=== PATIENT | male | born 1995 | race Caucasian/White ===

== ENCOUNTER 2018-03-21 10:42 | Observation (INO) | payer OTHER ==
[2018-03-21] VITALS (8 sets, daily range): BP systolic 129–145; BP diastolic 69–88
--- NOTE | 2018-03-21 10:44 | ER Report ---
History and Physical Time Seen By MD: 10:44 HPI/JULIUS CHIEF COMPLAINT: Abdominal pain HISTORY OF PRESENT ILLNESS: Patient is a 22-year-old male with no contributory past medical history who presents to the emergency department in acute alcohol withdrawal. The patient normally lives in [place] but is here for the summer for employment. His last drink was approximately 36-40 hours ago. He does however state that he did drink half a beer earlier today to help combat his withdrawal symptoms. He's feeling quite tremulous, he is sweaty feeling very anxious. Planing of some epigastric abdominal discomfort. Patient states he normally drinks about a half liter to 1 L of vodka daily. States that over the past 3 weeks his alcohol consumption has increased. He does not have a physician in town. He does have his mother who is here with him locally. She denies feeling suicidal. He denies any homicidal ideation either. Patient does report having going through severe withdrawal symptoms with attempts at detoxing before. But states that at that time his alcohol consumption was not quite as severe. REVIEW OF SYSTEMS: Constitutional: No fever, no chills. Sweaty and tremulous Eyes: No discharge. ENT: No sore throat. Cardiovascular: Tachycardic no chest pain Respiratory: No cough, no shortness of breath. Gastrointestinal: No abdominal pain, no vomiting. Nausea Genitourinary: No hematuria. Musculoskeletal: No back pain. Skin: No rashes. Neurological: No headache. Psychiatric: No suicidal or homicidal ideation Allergies: Coded Allergies: No Known Drug Allergies (Unverified , 03/21/18) Home Meds No Active Prescriptions or Reported Meds Past Medical/Surgical History Noncontributory Constitutional Vital Sign - Last 24 Hours 03/21/18 03/21/18 03/21/18 03/21/18 10:42 10:49 10:51 10:57 Temp 98.6 Pulse ??? 88 91 Resp 20 B/P (MAP) 155/96 155/96 (115) Pulse Ox 91 95 O2 Delivery Room Air 03/21/18 03/21/18 03/21/18 03/21/18 11:00 11:12 11:27 11:30 Pulse 87 76 B/P (MAP) 144/105 (118) 131/80 (97) 135/86 (102) Pulse Ox 93 93 7/21/18 03/21/18 03/21/18 03/21/18 11:42 11:57 12:00 12:12 Pulse 84 85 92 Resp 10 13 17 B/P (MAP) 136/77 (96) Pulse Ox 94 93 93 Physical Exam General Appearance: The patient is alert, has no immediate need for airway protection and no signs of toxicity. She appears flushed and diaphoretic Eyes: Pupils equal and round no pallor or injection. ENT, Mouth: Mucous membranes are moist. Respiratory: There are no retractions, lungs are clear to auscultation. Cardiovascular: Regular rate and rhythm. Gastrointestinal: Abdomen is soft and non tender, no masses, bowel sounds normal. Neurological: Awake alert anxious; CIWA score-25 Skin: Given his flushed and diaphoretic Musculoskeletal: Neck is supple non tender. Extremities are nontender, nonswollen and have full range of motion. Medical Decision Making Data Points Result Diagram: 03/21/18 1050 03/21/18 1050 Laboratory Hematology Test 03/21/18 10:45 03/21/18 10:50 Urine Color Yellow Urine Clarity Slightly-cloudy Urine pH 7.0 pH (4.8-9.5) Urine Specific [place] 1.001 Urine Protein Negative mg/dL (NEGATIVE) Urine Glucose (UA) Negative mg/dL (NEGATIVE) Urine Ketones Negative mg/dL (NEGATIVE) Urine Blood Negative (NEGATIVE) Urine Nitrite Negative (NEGATIVE) Urine Bilirubin Negative (NEGATIVE) Urine Urobilinogen Negative mg/dL (0.2-1.9) Urine Leukocyte Esterase Negative (NEGATIVE) Urine RBC None /HPF (0-2/HPF) Urine WBC <1 /HPF (0-5/HPF) Urine Squamous Epithelial Cells None /LPF (</=FEW) Urine Bacteria Negative /HPF (NONE-FEW) Urine Mucus None /HPF (NONE-FEW) Urine Opiates Screen Negative Urine Barbiturates Screen Negative Ur Tricyclic Antidepressants Screen Negative Urine Phencyclidine Screen Negative Urine Amphetamines Screen Negative Urine Benzodiazepines Screen Negative Urine Cocaine Screen Negative Urine Cannabinoids Screen Negative Red Blood Count 5.51 M/uL (4.00-5.60) Mean Corpuscular Volume 90.5 fL (80.0-96.0) Mean Corpuscular Hemoglobin 31.6 pg (26.0-33.0) Mean Corpuscular Hemoglobin Concent 34.9 g/dL (32.0-36.0) Red Cell Distribution Width 13.7 % (11.5-14.5) Mean Platelet Volume 8.1 fL (7.2-11.1) Neutrophils (%) (Auto) 68.9 % (39.4-72.5) Lymphocytes (%) (Auto) 17.0 % (17.6-49.6) Monocytes (%) (Auto) 12.2 % (4.1-12.4) Eosinophils (%) (Auto) 0.9 % (0.4-6.7) Basophils (%) (Auto) 1.0 % (0.3-1.4) Nucleated RBC Relative Count (auto) 0.1 /100WBC Neutrophils # (Auto) 6.2 K/uL (2.0-7.4) Lymphocytes # (Auto) 1.5 K/uL (1.3-3.6) Monocytes # (Auto) 1.1 K/uL (0.3-1.0) Eosinophils # (Auto) 0.1 K/uL (0.0-0.5) Basophils # (Auto) 0.1 K/uL (0.0-0.1) Nucleated RBC Absolute Count (auto) 0.01 K/uL Sodium Level 139 mmol/L (137-145) Potassium Level 3.7 mmol/L (3.5-5.0) Chloride Level 98 mmol/L (98-107) Carbon Dioxide Level 22 mmol/L (22-30) Blood Urea Nitrogen 11 mg/dl (9-21) Creatinine 0.80 mg/dl (0.66-1.25) Glomerular Filtration Rate Calc > 60.0 Random Glucose 115 mg/dl (75-110) Calcium Level 10.8 mg/dl (8.4-10.2) Magnesium Level 1.9 mg/dl (1.7-2.2) Total Bilirubin 1.3 mg/dl (0.2-1.3) Aspartate Amino Transf (AST/SGOT) 132 U/L (0-35) Alanine Aminotransferase (ALT/SGPT) 164 U/L (0-56) Alkaline Phosphatase 63 U/L (0-126) Total Protein 9.1 g/dl (6.3-8.2) Albumin 5.4 g/dl (3.5-5.0) Lipase 170 U/L (23-300) Salicylates Level < 10 mg/L Salicylate Last Dose Date unk Acetaminophen Level < 10 ug/ml Serum Alcohol < 10 mg/dl Chemistry Test 03/21/18 10:45 03/21/18 10:50 Urine Color Yellow Urine Clarity Slightly-cloudy Urine pH 7.0 pH (4.8-9.5) Urine Specific [place] 1.001 Urine Protein Negative mg/dL (NEGATIVE) Urine Glucose (UA) Negative mg/dL (NEGATIVE) Urine Ketones Negative mg/dL (NEGATIVE) Urine Blood Negative (NEGATIVE) Urine Nitrite Negative (NEGATIVE) Urine Bilirubin Negative (NEGATIVE) Urine Urobilinogen Negative mg/dL (0.2-1.9) Urine Leukocyte Esterase Negative (NEGATIVE) Urine RBC None /HPF (0-2/HPF) Urine WBC <1 /HPF (0-5/HPF) Urine Squamous Epithelial Cells None /LPF (</=FEW) Urine Bacteria Negative /HPF (NONE-FEW) Urine Mucus None /HPF (NONE-FEW) Urine Opiates Screen Negative Urine Barbiturates Screen Negative Ur Tricyclic Antidepressants Screen Negative Urine Phencyclidine Screen Negative Urine Amphetamines Screen Negative Urine Benzodiazepines Screen Negative Urine Cocaine Screen Negative Urine Cannabinoids Screen Negative White Blood Count 9.0 k/uL (4.5-11.0) Red Blood Count 5.51 M/uL (4.00-5.60) Hemoglobin 17.4 g/dL (14.0-18.0) Hematocrit 49.9 % (42.0-52.0) Mean Corpuscular Volume 90.5 fL (80.0-96.0) Mean Corpuscular Hemoglobin 31.6 pg (26.0-33.0) Mean Corpuscular Hemoglobin Concent 34.9 g/dL (32.0-36.0) Red Cell Distribution Width 13.7 % (11.5-14.5) Platelet Count 304 K/uL (150-450) Mean Platelet Volume 8.1 fL (7.2-11.1) Neutrophils (%) (Auto) 68.9 % (39.4-72.5) Lymphocytes (%) (Auto) 17.0 % (17.6-49.6) Monocytes (%) (Auto) 12.2 % (4.1-12.4) Eosinophils (%) (Auto) 0.9 % (0.4-6.7) Basophils (%) (Auto) 1.0 % (0.3-1.4) Nucleated RBC Relative Count (auto) 0.1 /100WBC Neutrophils # (Auto) 6.2 K/uL (2.0-7.4) Lymphocytes # (Auto) 1.5 K/uL (1.3-3.6) Monocytes # (Auto) 1.1 K/uL (0.3-1.0) Eosinophils # (Auto) 0.1 K/uL (0.0-0.5) Basophils # (Auto) 0.1 K/uL (0.0-0.1) Nucleated RBC Absolute Count (auto) 0.01 K/uL Glomerular Filtration Rate Calc > 60.0 Calcium Level 10.8 mg/dl (8.4-10.2) Magnesium Level 1.9 mg/dl (1.7-2.2) Total Bilirubin 1.3 mg/dl (0.2-1.3) Aspartate Amino Transf (AST/SGOT) 132 U/L (0-35) Alanine Aminotransferase (ALT/SGPT) 164 U/L (0-56) Alkaline Phosphatase 63 U/L (0-126) Total Protein 9.1 g/dl (6.3-8.2) Albumin 5.4 g/dl (3.5-5.0) Lipase 170 U/L (23-300) Salicylates Level < 10 mg/L Salicylate Last Dose Date unk Acetaminophen Level < 10 ug/ml Serum Alcohol < 10 mg/dl Toxicology Test 03/21/18 10:45 03/21/18 10:50 Urine Opiates Screen Negative Urine Barbiturates Screen Negative Ur Tricyclic Antidepressants Screen Negative Urine Phencyclidine Screen Negative Urine Amphetamines Screen Negative Urine Benzodiazepines Screen Negative Urine Cocaine Screen Negative Urine Cannabinoids Screen Negative Salicylates Level < 10 mg/L Salicylate Last Dose Date unk Acetaminophen Level < 10 ug/ml Serum Alcohol < 10 mg/dl Urinalysis Test 03/21/18 10:45 Urine Color Yellow Urine Clarity Slightly-cloudy Urine pH 7.0 pH (4.8-9.5) Urine Specific [place] 1.001 Urine Protein Negative mg/dL (NEGATIVE) Urine Glucose (UA) Negative mg/dL (NEGATIVE) Urine Ketones Negative mg/dL (NEGATIVE) Urine Blood Negative (NEGATIVE) Urine Nitrite Negative (NEGATIVE) Urine Bilirubin Negative (NEGATIVE) Urine Urobilinogen Negative mg/dL (0.2-1.9) Urine Leukocyte Esterase Negative (NEGATIVE) Urine RBC None /HPF (0-2/HPF) Urine WBC <1 /HPF (0-5/HPF) Urine Squamous Epithelial Cells None /LPF (</=FEW) Urine Bacteria Negative /HPF (NONE-FEW) Urine Mucus None /HPF (NONE-FEW) EKG/Imaging EKG Interpretation EKG shows normal sinus rhythm with a ventricular rate of [address] segment or T-wave abnormalities Monitor Interpretation: Normal Sinus Rhythm ED Course/Re-evaluation Clinical Indication for ER IV: IV Access ED Course 03/21/2018 11:20:14 am patient in acute alcohol withdrawal with a CIWA score of 25. Patient is not suicidal or homicidal. We will perform medical evaluation I believe the patient should be admitted for alcohol detox. Patient seems open to this suggestion and is cooperative at this time. Re-evaluation 03/21/2018 12:32:51 pm patient feeling improved after 5 of IV Valium and 5 oral Valium; CIWA score is 17. Did discuss the case with who is x ray control equipment repairer for behavioral medicine. They are apparently having an issue with a combative patient on the floor. She requested that the patient be admitted to the hospital service. I spoke with Dr. Werner Santos who is accepted the patient for alcohol detox at this time. Decision to Disposition Date: Mar 21, 2018 Decision to Disposition Time: 12:33 Depart Departure Latest Vital Signs Vital Signs Date Time Temp Pulse Resp B/P (MAP) Pulse Ox O2 Delivery O2 Flow Rate FiO2 03/21/18 12:12 92 17 93 03/21/18 12:00 136/77 (96) 03/21/18 10:49 98.6 Room Air Impression: Primary Impression: Alcohol dependence Condition: Improved Disposition: Admitted from ER (to dr Santos) New Scripts No Active Prescriptions or Reported Meds Problem Qualifiers Primary Impression: Alcohol dependence Substance use status: in withdrawal Complication of substance-induced condition: uncomplicated Qualified Codes: F10.230 - Alcohol dependence with withdrawal, uncomplicated SOLEDAD KWAN MD Mar 21, 2018 10:44
[2018-03-21] MEDS ORDERED: THIAMINE HCL(*) 200 MG/2 ML IN 100 MG, FOLIC ACID(*) 50 MG/10 ML INJ 1 MG, MULTIVITAMIN... IV ONE ×2 (11:02→11:10)
[2018-03-21] MEDS ORDERED: DIAZEPAM 50 MG/10 ML MDV IVP ONE (11:05)
[2018-03-21 11:10] LABS: PLATELET COUNT, AUTOMATED 304 K/uL (150-450)
--- NOTE | 2018-03-21 11:14 | EKG ---
FACILITY: [facility] - [place] PATIENT NAME: RADHA PEREZ : [id number] MR: [id number] V: [id number] EXAM DATE: ORDERING PHYSICIAN: SOLEDAD KWAN TECHNOLOGIST: AYLEEN Test Reason : ETOH WITHDRAW Blood Pressure : / mmHG Vent. Rate : 087 BPM Atrial Rate : 087 BPM P-R Int : 132 ms QRS Dur : 098 ms QT Int : 362 ms P-R-T Axes : 061 075 050 degrees QTc Int : 435 ms Sinus rhythm Arifact in limb mleads - repeat if needed No previous ECGs available Confirmed by TONY CERVANTES ([id number]) on 03/21/2018 11:31:20 AM Referred By: ANIYA Confirmed By:TONY CERVANTES
[2018-03-21] MEDS ORDERED: ONDANSETRON 4 MG/2 ML VIAL IVP ONE (11:20)
[2018-03-21] MEDS ORDERED: DIAZEPAM 5 MG TAB PO ONE (11:40)
[2018-03-21] MEDS ORDERED: FLUO-201 PO (13:11)
--- NOTE | 2018-03-21 14:07 | History & Physical ---
History of Present Illness Chief Complaint "I want to quit" History of Present Illness 22yo male with PMHx significant for RADHA/depression. He reports starting to drink alcohol at age 19. He states he drank rather heavily shortly after that. He quit drinking approximately 8 months ago with moderate withdrawal symptoms ( no seizures). He was abstinent for only a short time and resumed drinking. He reports drinking heavily for the past month or so - up to one liter of vodka a day. He states he wanted to stop drinking and tried to do it on his own starting 2 days ago. He developed tremulousness, auditory/visual hallucinations , and abdominal pain. He tried drinking half of a beer to relieve his symptoms. He then decided to seek medical attention. His evaluation revealed transaminitis , but was otherwise unremarkable. He was recommended for admission. History Problems: (1) Alcohol dependence Status: Chronic (2) Generalized anxiety disorder Status: Chronic (3) Depression Status: Chronic Home Meds Reported Medications Fluoxetine Hcl (PROZAC) 10 Mg Capsule, 10 MG PO QDAY, CAPSULE 03/21/18 Allergies: Coded Allergies: No Known Drug Allergies (Unverified , 03/21/18) Patient History: Alcoholism in father FATHER Hx Smoking: No Hx Alcohol Use: Yes Hx Substance Use Disorder: Yes Social Drugs: Marijuana Review of Systems Constitutional: Other (termor) Neurological: Other (hallucinations) Cardiovascular: Palpitations Psychiatric: Depression, Anxiety Exam Vital Signs Vital Signs Date Time Temp Pulse Resp B/P (MAP) Pulse Ox O2 Delivery O2 Flow Rate FiO2 03/21/18 13:33 95 03/21/18 13:07 97.7 85 18 145/82 (103) Room Air General Appearance: Alert, Awake Neuro: Other (mild tremulousness) Eyes: PERRLA ENT: Moist Mucous Membranes, Oropharynx Clear Cardiovascular: Regular Rate and Rhythm (slightly tachycardic) Respiratory: Clear to Auscultation Chest: No Tenderness GI: Abd Soft and Non-Tender (no masses or organomegally noted) Lymph: No Adenopathy Extremities: Warm, Perfused Integumentary: Skin Intact without Lesion / Mass Psych: Alert & Oriented X3 Medical Decision Making Data Points Result Diagram: 03/21/18 1050 03/21/18 1050 Item Value Date Time Serum Alcohol < 10 mg/dl 03/21/18 1050 Urine Cannabinoids Screen Negative 03/21/18 1045 Urine Cocaine Screen Negative 03/21/18 1045 Urine Benzodiazepines Screen Negative 03/21/18 1045 Urine Amphetamines Screen Negative 03/21/18 1045 Urine Phencyclidine Screen Negative 03/21/18 1045 Ur Tricyclic Antidepressants Screen Negative 03/21/18 1045 Urine Barbiturates Screen Negative 03/21/18 1045 Acetaminophen Level < 10 ug/ml 03/21/18 1050 Urine Opiates Screen Negative 03/21/18 1045 Salicylates Level < 10 mg/L 03/21/18 1050 Urine Mucus None /HPF 03/21/18 1045 Urine Bacteria Negative /HPF 03/21/18 1045 Urine WBC <1 /HPF 03/21/18 1045 Urine Squamous Epithelial Cells None /LPF 03/21/18 1045 Urine RBC None /HPF 03/21/18 1045 Urine Leukocyte Esterase Negative 03/21/18 1045 Urine Urobilinogen Negative mg/dL 03/21/18 1045 Urine Bilirubin Negative 03/21/18 1045 Urine Nitrite Negative 03/21/18 1045 Urine Blood Negative 03/21/18 1045 Urine Ketones Negative mg/dL 03/21/18 1045 Urine Glucose (UA) Negative mg/dL 03/21/18 1045 Urine Protein Negative mg/dL 03/21/18 1045 Urine Specific [place] 1.001 03/21/18 1045 Urine Clarity Slightly-cloudy 03/21/18 1045 Urine pH 7.0 pH 03/21/18 1045 Urine Color Yellow 03/21/18 1045 Lipase 170 U/L 03/21/18 1050 Albumin 5.4 g/dl H 03/21/18 1050 Total Protein 9.1 g/dl H 03/21/18 1050 Alkaline Phosphatase 63 U/L 03/21/18 1050 Alanine Aminotransferase (ALT/SGPT) 164 U/L H 03/21/18 1050 Aspartate Amino Transf (AST/SGOT) 132 U/L H 03/21/18 1050 Total Bilirubin 1.3 mg/dl 03/21/18 1050 Calcium Level 10.8 mg/dl H 03/21/18 1050 Magnesium Level 1.9 mg/dl 03/21/18 1050 EKG / Imaging EKG Interpretation PATIENT NAME: RADHA PEREZ : [id number] MR: [id number] V: [id number] EXAM DATE: ORDERING PHYSICIAN: SOLEDAD KWAN TECHNOLOGIST: AYLEEN Test Reason : ETOH WITHDRAW Blood Pressure : / mmHG Vent. Rate : 087 BPM Atrial Rate : 087 BPM P-R Int : 132 ms QRS Dur : 098 ms QT Int : 362 ms P-R-T Axes : 061 075 050 degrees QTc Int : 435 ms Sinus rhythm Arifact in limb mleads - repeat if needed No previous ECGs available Confirmed by TONY CERVANTES ([id number]) on 03/21/2018 11:31:20 AM Referred By: ANIYA Confirmed By:TONY CERVANTES Assessment and Plan Problems: (1) Alcohol dependence Status: Chronic Assessment & Plan: He appears to have at least mild withdrawal symptoms at this point (He did already receive a dose of Valium in the ER). Will admit to medical floor, place on CIWA protocol, dose diazepam as needed, give B vitamins , have substance abuse counselor see him, monitor closely, modify therapy as needed. Venous Thromboembolism Antithrombotics Is Pt On Any Antithrombotics?: No (JENNIFER hose/ambulate) Exam Sepsis Risk: No Definite Risk Problem Qualifiers (1) Alcohol dependence: Substance use status: in withdrawal Complication of substance-induced condition: uncomplicated Qualified Codes: F10.230 - Alcohol dependence with withdrawal, uncomplicated TONY CERVANTES MD Mar 21, 2018 14:07
[2018-03-21] MEDS: NS(*) 0.9% 1000 ML BAG 1,000 ML IV PRN (15:04)
[2018-03-21] MEDS: DIAZEPAM 10 MG TAB PO PRN ×5 (15:52→22:23)
[2018-03-21] MEDS ORDERED: ACETAMINOPHEN 325 MG TAB PO ONE (20:20)
[2018-03-22] VITALS (11 sets, daily range): BP systolic 123–141; BP diastolic 73–95
[2018-03-22] MEDS: DIAZEPAM 10 MG TAB PO PRN ×7 (03:17→21:20)
[2018-03-22] MEDS: NS(*) 0.9% 1000 ML BAG 1,000 ML IV PRN (06:14)
[2018-03-22 06:22] LABS: PLATELET COUNT, AUTOMATED 220 K/uL (150-450)
[2018-03-22 06:27] LABS: INR 0.97
[2018-03-22] MEDS: FOLIC ACID 1 MG TAB PO SCH (09:20)
[2018-03-22] MEDS: THIAMINE HCL 100 MG TAB PO SCH (09:20)
--- NOTE | 2018-03-22 10:24 | Hospitalist Progress Note ---
Subjective Progress Notes Subjective This patient was admitted for alcohol withdrawal. He did require treatment with diazepam overnight. Patient Complains of: Cardiovascular: No: Chest Pain Respiratory: No: Shortness of Breath Physical Exam Vital Signs Date Time Temp Pulse Resp B/P (MAP) Pulse Ox O2 Delivery O2 Flow Rate FiO2 03/22/18 10:12 97.9 85 20 140/81 (100) 97 Room Air Intake and Output 03/23/18 07:00 Intake Total 0 ml Balance 0 ml Intake Oral 0 ml Cardiovascular: Regular Rate and Rhythm Respiratory: Clear to Auscultation Result Diagram: 03/22/1853003/22/18530 Monitor Interpretation: Normal Sinus Rhythm Assessment and Plan Problems: (1) Alcohol withdrawal Assessment & Plan: He is on CIWA protocol and did require diazepam yesterday. He is receiving thiamine. (2) Alcohol dependence Status: Chronic Assessment & Plan: He will be evaluated by substance abuse tractor trailer mechanic today. Exam Sepsis Risk: No Definite Risk Problem Qualifiers (1) Alcohol dependence: Substance use status: in withdrawal Complication of substance-induced condition: uncomplicated Qualified Codes: F10.230 - Alcohol dependence with withdrawal, uncomplicated SPENSER RIVAS DO Mar 22, 2018 10:24
[2018-03-23] VITALS (9 sets, daily range): BP systolic 113–145; BP diastolic 73–103
[2018-03-23] MEDS: DIAZEPAM 10 MG TAB PO PRN ×9 (03:26→20:25)
[2018-03-23] MEDS: NS(*) 0.9% 1000 ML BAG 1,000 ML IV PRN (03:29)
[2018-03-23] MEDS: THIAMINE HCL 100 MG TAB PO SCH (09:07)
[2018-03-23] MEDS: FOLIC ACID 1 MG TAB PO SCH (09:07)
--- NOTE | 2018-03-23 10:45 | Hospitalist Progress Note ---
Subjective Progress Notes Subjective He is having some withdraw symptoms this morning. He did require dose of Valium at 0730. Patient Complains of: Cardiovascular: No: Chest Pain Respiratory: No: Shortness of Breath Physical Exam Vital Signs Date Time Temp Pulse Resp B/P (MAP) Pulse Ox O2 Delivery O2 Flow Rate FiO2 03/23/18 10:24 93 03/23/18 10:12 98.0 61 14 124/80 (95) Room Air Intake and Output 03/24/18 07:00 Intake Total 590 ml Balance 590 ml Intake Oral 590 ml General Appearance: Alert, Awake, No Acute Distress Neuro: No Gross deficits Cardiovascular: Regular Rate and Rhythm Respiratory: No Respiratory Distress, Clear to Auscultation Psych: Alert & Oriented X3, Appropriate Mood & Affect Result Diagram: 03/22/18 0531 03/22/18 0531 Monitor Interpretation: Normal Sinus Rhythm Assessment and Plan Problems: (1) Alcohol withdrawal Assessment & Plan: He is on CIWA protocol and did require diazepam this morning. He is receiving thiamine. (2) Alcohol dependence Status: Chronic Assessment & Plan: He was evaluated by substance abuse engineering operations leader. Exam Sepsis Risk: No Definite Risk Problem Qualifiers (1) Alcohol dependence: Substance use status: in withdrawal Complication of substance-induced condition: uncomplicated Qualified Codes: F10.230 - Alcohol dependence with withdrawal, uncomplicated JESSICA FLETCHER PHARMACY TECHNICIAN Mar 23, 2018 10:45
[2018-03-24 06:10] VITALS: BP 124/92
[2018-03-24 08:10] VITALS: BP 160/116
[2018-03-24 09:01] VITALS: BP 84/59
[2018-03-24] MEDS: THIAMINE HCL 100 MG TAB PO SCH (09:45)
[2018-03-24] MEDS: FOLIC ACID 1 MG TAB PO SCH (09:45)
[2018-03-24 09:47] VITALS: BP 118/72
--- NOTE | 2018-03-24 09:55 | Hospitalist Depart ---
Discharge Summary Reason for Hosp/Final Diag: (1) Alcohol withdrawal Hospital Course & Plan: He presented with needing help with alcohol withdrawal. He stopped drinking a liter a vodka a day 2 days before admission. He did have a beer the day of admission. He wants to go home today. It has been about 6 days from essentially his last drink of alcohol. He is alert and orientated x3. He was on CIWA protocol and his last dose of diazepam was over 12 hours ago. Staff reports that his tremor occurs when they walk in the room and all his CIWA scoring points are from the subjective portion. His temperature/heart rate are normal, but he intermittently has a high blood pressure. He is safe to go home. He has refused going to [facility], but has a plan for outpatient treatment. (2) Alcohol dependence Status: Chronic Hospital Course & Plan: He was evaluated by substance abuse sports physician. Departure Weight (Pounds): 218 Result Diagram: 03/22/18 0531 03/22/18 05 Item Value Date Time Mean Corpuscular Volume 90.5 fL 03/21/18 1050 Hemoglobin 17.4 g/dL 03/21/18 1050 Hematocrit 49.9 % 03/21/18 1050 White Blood Count 9.0 k/uL 03/21/18 1050 Mean Corpuscular Volume 92.6 fL 03/22/18 0531 Hematocrit 45.1 % 03/22/18 0531 Hemoglobin 15.5 g/dL 03/22/18 0531 White Blood Count 6.3 k/uL 03/22/18 0531 Neutrophils (%) (Auto) 68.9 % 03/21/18 1050 Neutrophils (%) (Auto) 49.5 % 03/22/18 0531 Prothromb Time International Ratio 0.97 03/22/18 0531 Total Bilirubin 1.3 mg/dl 03/21/18 1050 Aspartate Amino Transf (AST/SGOT) 132 U/L H 03/21/18 1050 Alanine Aminotransferase (ALT/SGPT) 164 U/L H 03/21/18 1050 Alkaline Phosphatase 63 U/L 03/21/18 1050 Total Bilirubin 1.2 mg/dl 03/22/18 0531 Aspartate Amino Transf (AST/SGOT) 113 U/L H 03/22/18 0531 Alanine Aminotransferase (ALT/SGPT) 151 U/L H 03/22/18 0531 Alkaline Phosphatase 46 U/L 03/22/18 0531 Thyroid Stimulating Hormone (TSH) 3.01 uIU/ml 03/21/18 1050 Lipase 170 U/L 03/21/18 1050 Magnesium Level 1.9 mg/dl 03/21/18 1050 Urine RBC None /HPF 03/21/18 1045 Urine WBC <1 /HPF 03/21/18 1045 Urine Squamous Epithelial Cells None /LPF 03/21/18 1045 Urine Leukocyte Esterase Negative 03/21/18 1045 Serum Alcohol < 10 mg/dl 03/21/18 1050 Acetaminophen Level < 10 ug/ml 03/21/18 1050 Salicylates Level < 10 mg/L 03/21/18 1050 Urine Cannabinoids Screen Negative 03/21/18 1045 Urine Cocaine Screen Negative 03/21/18 1045 Urine Benzodiazepines Screen Negative 03/21/18 1045 Urine Amphetamines Screen Negative 03/21/18 1045 Urine Phencyclidine Screen Negative 03/21/18 1045 Ur Tricyclic Antidepressants Screen Negative 03/21/18 1045 Urine Barbiturates Screen Negative 03/21/18 1045 Urine Opiates Screen Negative 03/21/18 1045 EKG Vent. Rate : 087 BPM Atrial Rate : 087 BPM P-R Int : 132 ms QRS Dur : 098 ms QT Int : 362 ms P-R-T Axes : 061 075 050 degrees QTc Int : 435 ms Sinus rhythm Arifact in limb mleads - repeat if needed No previous ECGs available Confirmed by TONY CERVANTES ([id number]) on 03/21/2018 11:31:20 AM Condition: Improved Discharge Instructions Home Meds Reported Medications Fluoxetine Hcl (PROZAC) 10 Mg Capsule, 10 MG PO QDAY, CAPSULE 03/21/18 Diet: Regular Activity: As Tolerated Special Instructions: Follow up with outpatient treatment for alcohol abstinence Venous Thromboembolism Antithrombotics Is Pt On Any Antithrombotics?: No (JENNIFER hose/ambulate) Problem Qualifiers (1) Alcohol dependence: Substance use status: in withdrawal Complication of substance-induced condition: uncomplicated Qualified Codes: F10.230 - Alcohol dependence with withdrawal, uncomplicated ELBERT QUIROGA MD Mar 24, 2018 09:55
== END 2018-03-24 09:57 | disposition home or self-care (01) ==
LOC: ER 10:45 → INTOOBSV 12:39 → MED 12:39
PROVIDERS: ADMIT Internal Medicine; ATTEND Internal Medicine
DX: F10.239 Alcohol dependence with withdrawal, unspecified (principal); F10.230 Alcohol dependence with withdrawal, uncomplicated; R25.1 Tremor, unspecified; R61 Generalized hyperhidrosis
CPT/HCPCS: 36415; 80305; 80320; 80329; 81001; 83690; 83735; 84443; 85025; 85610; 93005; 96365; 96375; 99284; G0378; J2405; J3360; J3411; J3475; J7030; 82040; 82247; 82310; 82374; 82435; 82565; 82947; 84075; 84132; 84155; 84295; 84450; 84460; 84520

== ENCOUNTER 2018-05-30 03:14 | Emergency (ER) | payer OTHER ==
[2018-05-30] MEDS ORDERED: LR(*) 1000 ML BAG 1,000 ML IV ONE (03:15)
[2018-05-30] MEDS ORDERED: ONDANSETRON 4 MG/2 ML VIAL IVP ONE (03:15)
[2018-05-30] MEDS ORDERED: IOPAMIDOL 76% 100 ML INFUS BTL 100 ML ONE (03:50)
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
[2018-05-30 03:55] LABS: PLATELET COUNT, AUTOMATED 319 K/uL (150-450)
[2018-05-30 03:58] LABS: INR 1.08
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
[2018-05-30] MEDS ORDERED: fentaNYL CITR 100 MCG/2 ML AMP IVP ONE ×3 (04:30→07:00)
[2018-05-30] MEDS ORDERED: NS(*) 0.9% 1000 ML BAG 1,000 ML IV ONE ×2 (04:35)
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
[2018-05-30] MEDS ORDERED: LR(*) 1000 ML BAG 1,000 ML ONE ×2 (04:53→05:01)
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
[2018-05-30] MEDS ORDERED: KETAMINE HCL 200 MG/20 ML MDV ONE (05:48)
[2018-05-30] MEDS ORDERED: KETAMINE HCL 500 MG/5 ML VIAL ONE (05:53)
[2018-05-30] MEDS ORDERED: NS(*) 0.9% 500 ML BAG 500 ML ONE (05:54)
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
[2018-05-30] MEDS ORDERED: KETAMINE HCL-NS 50 MG/5 ML SYR ONE (06:41)
[2018-05-30 06:55] VITALS: BP 81/60
[2018-05-30] MEDS ORDERED: ROCURONIUM BROM 10 MG/ML 5 ML IVP ONE (07:00)
[2018-05-31] MEDS ORDERED: PROPOFOL(*)1000 MG/100 ML VIAL 100 ML IV PRN (05:30)
[2018-05-31] MEDS ORDERED: KETAMINE HCL 200 MG/20 ML MDV IVP ONE (05:30)
[2018-05-31] MEDS ORDERED: PROPOFOL EMUL 10MG/ML 20 ML VL IVP ONE (05:30)
== END 2018-05-30 07:30 | disposition short-term general hospital (02) ==
LOC: ER 03:24
DX: S32.811A Multiple fractures of pelvis with unstable disruption of pelvic ring, initial encounter for closed fracture (principal); S22.22XA Fracture of body of sternum, initial encounter for closed fracture; S02.113A Unspecified occipital condyle fracture, initial encounter for closed fracture; S32.009A Unspecified fracture of unspecified lumbar vertebra, initial encounter for closed fracture; T24.211A Burn of second degree of right thigh, initial encounter; S82.141A Displaced bicondylar fracture of right tibia, initial encounter for closed fracture; F10.920 Alcohol use, unspecified with intoxication, uncomplicated; S06.6X9A Traumatic subarachnoid hemorrhage with loss of consciousness of unspecified duration, initial encounter; S06.5X9A Traumatic subdural hemorrhage with loss of consciousness of unspecified duration, initial encounter; T68.XXXA Hypothermia, initial encounter; V47.0XXA Car driver injured in collision with fixed or stationary object in nontraffic accident, initial encounter
CPT/HCPCS: 29505; 31500; 70450; 71045; 71046; 71260; 72125; 72170; 73552; 73590; 74177; 80320; 81001; 82150; 83605; 83690; 85025; 85610; 85730; 86850; 86900; 86901; 86920; 93005; 94002; 96361; 96374; 96375; 96376; 99001; 99291; 99292; C1758; J2405; J2704; J3010; J3490; J7030; J7040; J7120; L0172; Q9967; 82040; 82247; 82310; 82374; 82435; 82565; 82947; 84075; 84132; 84155; 84295; 84450; 84460; 84520

== ENCOUNTER → 2018-05-30 | Outpatient (REF) ==
[~2018-05-30] MED LIST: FLUO-201 PO
== END ==
LOC: AMB 06:06
PROVIDERS: ATTEND Nurse Practitioner
DX: Z76.89 Persons encountering health services in other specified circumstances (principal)

== ENCOUNTER → 2018-05-30 | Outpatient (CLI) | payer OTHER | LOC: AMB 01:51 | PROVIDERS: ATTEND Nurse Practitioner | DX: M79.605 Pain in left leg (principal); M21.962 Unspecified acquired deformity of left lower leg; R19.30 Abdominal rigidity, unspecified site; T24.211A Burn of second degree of right thigh, initial encounter; R11.10 Vomiting, unspecified; V49.88XA Car occupant (driver) (passenger) injured in other specified transport accidents, initial encounter | CPT/HCPCS: A0425; A0427 ==

== ENCOUNTER 2018-07-15 15:50 | Emergency (ER) | payer OTHER ==
[2018-07-15 16:07] VITALS: BP 117/78
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
== END 2018-07-15 16:20 | disposition home or self-care (01) ==
LOC: ER 16:00
DX: F11.10 Opioid abuse, uncomplicated (principal)
CPT/HCPCS: 99281